=== PATIENT | female | born 1990 | race Caucasian/White ===

== ENCOUNTER 2024-11-05 06:30 | Day surgery (SDC) | payer BC ==
[2024-11-05] MEDS: TYLENOL EXTRA STRENGTH 500 MG PO ONE (06:41)
[2024-11-05] MEDS: NEURONTIN PO ONE (06:41)
[2024-11-05] MEDS: Decadron 4 MG PO ONE (06:41)
[2024-11-05] MEDS: celeBREX 100 MG PO ONE (06:41)
[2024-11-05 06:44] LABS: HCG URINE TEST NEGATIVE (NEGATIVE)
[2024-11-05] MEDS: CEFAZOLIN 2 GM/100 ML NaCl 2 GM/100 ML IVPB IV SCH (06:44)
[2024-11-05] MEDS: Lactated Ringers 1,000 ML IV ONE (06:44)
[2024-11-05 06:51] VITALS: RESP 16
[2024-11-05] MEDS ORDERED: Sodium Chloride 0.9% 1000 ML 1,000 ML ONE (08:51)
[2024-11-05] MEDS ORDERED: TORAdol 30 mg Injection ONE (09:08)
[2024-11-05] MEDS ORDERED: propofoL IV ONE (09:37)
[2024-11-05] MEDS ORDERED: Zofran 4 MG/2 ML VIAL ONE (09:37)
[2024-11-05] MEDS ORDERED: SUBLIMAZE 100 MCG/2 ML ONE (09:42)
[2024-11-05 10:09] VITALS: PULSE 72
[2024-11-05 10:23] VITALS: BP 103/68; TEMP 98.1; O2SAT 100
--- NOTE | 2024-11-06 11:17 | OP ---
SURGERY DATE/TIME: 11/05/2024 [id number] PREOPERATIVE DIAGNOSIS: Menorrhagia. POSTOPERATIVE DIAGNOSIS: Menorrhagia. PROCEDURE: Hysteroscopy, dilation and curettage with failed ablation. SURGEON: Konstantin Frazier DO. DENTAL TECHNICIAN APPRENTICE: Lian Pompa. ANESTHESIA: General. ESTIMATED BLOOD LOSS: Minimal. COMPLICATIONS: None. FINDINGS: The risks, benefits, indications, and alternatives of the procedure were reviewed with the patient prior to the procedure. Patient understood the risks of infection, bleeding, bowel injury, bladder injury, ureteral injury, uterine perforation, pelvic infection, thromboembolic disorder associated with the surgery and desires to have the surgery as a possible means to alleviate her current medical condition. DESCRIPTION OF PROCEDURE AND FINDINGS: At this point, patient was taken to the operating room, given general sedation, placed in the dorsal lithotomy position, prepped and draped in the usual sterile fashion. A weighted speculum was then placed in the patient's vagina, and the anterior lip of the cervix was grasped with a single-tooth tenaculum. Endocervical dilators were advanced through the endocervical canal as a means to dilate the cervix and the 5 mm hysteroscope was taken through the endocervical region where visualization appeared to show scarring throughout the uterine cavity. From this point, the hysteroscope was removed, and the NovaSure was then taken through the endocervical region toward the fundal region, retracted approximately 1 cm where at this point multiple attempts were made to engage the NovaSure. However, the instrument never turned on with its testing after multiple attempts to engage the NovaSure in an attempt to ablate the uterine cavity. After multiple attempts were made, the NovaSure was then removed from the uterine cavity and all other instruments were removed from the patient's vaginal region at this point, after curettage had been performed on her. From this point, patient was then taken out of the dorsal lithotomy position, was taken out of anesthesia, and was then taken to the recovery room in stable condition. All instruments and laps were accounted for x2.
== END 2024-11-05 10:33 | disposition home or self-care (01) ==
LOC: SDC 06:30
PROVIDERS: ATTEND Obstetrics & Gynecology
DX: N92.0 Excessive and frequent menstruation with regular cycle (principal)
CPT/HCPCS: 58558; 81025; J0690; J1885; J2405; J2704; J3010; A9270-GY

== ENCOUNTER 2024-12-24 06:50 | Observation (INO) | payer BC ==
[2024-12-24] MEDS ORDERED: CEFAZOLIN 2 GM/100 ML NaCl 2 GM/100 ML IVPB IV ONE (07:29)
[2024-12-24] MEDS ORDERED: Pepcid 20 MG VIAL IV ONE (07:29)
[2024-12-24 07:30] LABS: HCG URINE TEST NEGATIVE (NEGATIVE)
[2024-12-24] MEDS ORDERED: TYLENOL EXTRA STRENGTH 500 MG ONE (07:30)
[2024-12-24] MEDS ORDERED: Lactated Ringers 1,000 ML IV ONE ×2 (07:30→10:09)
[2024-12-24] MEDS ORDERED: Transderm Scop 1.5MG Patch ONE (07:30)
[2024-12-24] MEDS ORDERED: NEURONTIN ONE (07:30)
[2024-12-24] MEDS ORDERED: Decadron 4 MG ONE (07:30)
[2024-12-24] MEDS ORDERED: celeBREX 100 MG ONE (07:30)
[2024-12-24] MEDS: Decadron 4 MG PO ONE (07:31)
[2024-12-24] MEDS: celeBREX 100 MG PO ONE (07:31)
[2024-12-24] MEDS: NEURONTIN PO ONE (07:31)
[2024-12-24] MEDS: Lactated Ringers 1,000 ML IV SCH ×2 (07:31→15:06)
[2024-12-24] MEDS: CEFAZOLIN 2 GM/100 ML NaCl 2 GM/100 ML IVPB IV SCH ×2 (07:31→16:51)
[2024-12-24] MEDS: Transderm Scop 1.5MG Patch TOP PRN (07:32)
[2024-12-24] MEDS: Pepcid 20 MG VIAL IV ONE (07:32)
[2024-12-24] MEDS: TYLENOL EXTRA STRENGTH 500 MG PO ONE (07:32)
[2024-12-24 08:04] LABS: Hematocrit 32.6 % (34.1-44.9); Hemoglobin 10.2 g/dL (11.2-15.7); Mean Cell Volume 85.1 fL (79.4-94.8); Mean Corpuscular Hemoglobin 26.6 pg (25.6-32.2); Mean Corpuscular Hgb Concent. 31.3 g/dL (32.2-35.5); Mean Platelet Volume 8.7 fL (9.4-12.3); Platelet Count 307 x10^3/uL (182-369); Red Blood Count 3.83 x10^6/uL (3.93-5.22); Red Cell Distribution Width 15.2 % (11.7-14.4); White Blood Count 4.6 x10^3/uL (3.98-10.04)
[2024-12-24 08:17] LABS: ALBUMIN 4.2 g/dL (3.5-5.0); ANION GAP 13.5 MEQ/L (5-15); BILIRUBIN,TOTAL 0.4 mg/dL (0.2-1.3); Calcium 8.8 mg/dL (8.4-10.2); Creatinine 1 0.61 mg/dL (0.52-1.04); EST GLOMERULAR FILTRATION RATE 120.2 ML/MIN; Potassium 3.5 mmol/L (3.5-5.1)
[2024-12-24 08:37] LABS: ABO TYPING A; Antibody Screen NEGATIVE (NEGATIVE); RH TYPING POSITIVE
[2024-12-24] MEDS ORDERED: BRIDION 200MG/2ML IV ONE (09:15)
[2024-12-24] MEDS ORDERED: ROCURONIUM BROMIDE IV ONE ×2 (09:16→10:50)
[2024-12-24] MEDS ORDERED: Astramorph-Pf 5 MG/10 ML ONE (09:16)
[2024-12-24] MEDS ORDERED: Zofran 4 MG/2 ML VIAL ONE (09:18)
[2024-12-24] MEDS ORDERED: dexAMETHasone sodium phosphate ONE (09:18)
[2024-12-24] MEDS ORDERED: Sensorcaine 0.25% 10 ML ONE (09:18)
[2024-12-24] MEDS ORDERED: Xylocaine-Mpf 2% 5 Ml Vial ONE (09:18)
[2024-12-24] MEDS ORDERED: PITRESSIN 20 UNITS ONE (09:19)
[2024-12-24] MEDS ORDERED: propofoL IV ONE (09:19)
[2024-12-24] MEDS ORDERED: Sodium Chloride 0.9% 250 ML 250 ML IV ONE (09:29)
[2024-12-24] MEDS ORDERED: Versed 2 MG/2 ML Injection ONE (09:33)
[2024-12-24] MEDS ORDERED: Sodium Chloride 0.9% 1000 ML 1,000 ML ONE (09:41)
[2024-12-24] MEDS ORDERED: Ephedrine Sulfate 50 MG/ML ONE (12:03)
[2024-12-24 14:29] LABS: Appearance Clear (Clear); Bacteria None Seen /HPF (None Seen); Bilirubin Negative (Negative); Blood Negative (Negative); Epithelial Cells None Seen /HPF (None Seen); Glucose, Urine Negative (Negative); Hyaline Casts NONE SEEN /LPF (0-2); Ketones Trace (Negative); Leukocyte Esterase Negative (Negative); Nitrite Negative (Negative); Ph 7.5 (4.6-8.0); Protein,Urine Dip Negative (Negative); RBC 0-2 /HPF (0-5); Specific Gravity <=1.005 (1.005-1.030); Urobilinogen 0.2 mg/dL (0.2); WBC 0-2 /HPF (0-5)
[2024-12-24] MEDS ORDERED: Zofran 4 MG/2 ML VIAL IV PRN (14:31)
[2024-12-24] MEDS ORDERED: TORAdol 30 mg Injection IV PRN (14:33)
[2024-12-24] MEDS ORDERED: Narcan 0.4 MG/ML IV PRN (14:36)
[2024-12-24] MEDS ORDERED: BENADRYL 50 MG/ML IV PRN (14:36)
[2024-12-24] MEDS ORDERED: DEMEROL 50 MG IV PRN (14:36)
[2024-12-24] MEDS ORDERED: MORPHINE SULFATE 2 MG INJ IV PRN (14:36)
[2024-12-24] MEDS ORDERED: CLARITIN 10 MG PO PRN (14:36)
[2024-12-24] MEDS ORDERED: Nubain 10 MG/ML IV PRN (14:36)
[2024-12-24] MEDS ORDERED: HOLD NARCOTIC ANALGESICS AND SEDATIVES X24 HR MC PRN (14:36)
[2024-12-24] MEDS: Mylicon 80MG PO SCH (15:04)
[2024-12-24] MEDS: Reglan 10 MG/2 ML IV SCH (15:04)
[2024-12-24] MEDS: Docusate Sodium 100 MG PO SCH (15:04)
[2024-12-24] MEDS: Lactated Ringers 500 ML IV SCH (16:21)
[2024-12-24 18:40] LABS: Hematocrit 28.4 % (34.1-44.9); Mean Cell Volume 85.8 fL (79.4-94.8); Mean Corpuscular Hemoglobin 27.2 pg (25.6-32.2); Mean Corpuscular Hgb Concent. 31.7 g/dL (32.2-35.5); Platelet Count 283 x10^3/uL (182-369); Red Blood Count 3.31 x10^6/uL (3.93-5.22); Red Cell Distribution Width 15.2 % (11.7-14.4)
[2024-12-24] MEDS: Sodium Chloride 0.9% 10 ML FLUSH Syringe IJ SCH (23:08)
[2024-12-25 05:15] LABS: Hematocrit 26.9 % (34.1-44.9); Hemoglobin 8.5 g/dL (11.2-15.7); Mean Cell Volume 87.3 fL (79.4-94.8); Mean Corpuscular Hemoglobin 27.6 pg (25.6-32.2); Mean Corpuscular Hgb Concent. 31.6 g/dL (32.2-35.5); Mean Platelet Volume 9.6 fL (9.4-12.3); Platelet Count 336 x10^3/uL (182-369); Red Blood Count 3.08 x10^6/uL (3.93-5.22); Red Cell Distribution Width 15.7 % (11.7-14.4); White Blood Count 7.9 x10^3/uL (3.98-10.04)
[2024-12-25 05:34] LABS: ALBUMIN 3.4 g/dL (3.5-5.0); BILIRUBIN,TOTAL 0.2 mg/dL (0.2-1.3); Calcium 8.3 mg/dL (8.4-10.2); Creatinine 1 0.61 mg/dL (0.52-1.04); EST GLOMERULAR FILTRATION RATE 120.2 ML/MIN; Potassium 3.6 mmol/L (3.5-5.1); Total Protein 5.8 g/dL (6.3-8.2)
[2024-12-25 07:29] VITALS: BP 97/51; PULSE 52; RESP 18; TEMP 97.4; O2SAT 97
--- NOTE | 2024-12-25 07:31 | PCM.NOTE ---
Date and Time: 12/25/24728 Subjective Assessment: pod 1 sp lavh left salpingectomy pt currently resting in bed and doing well able to ambulate and tolerate diet vss afebrile abd; soft incision c/d/intact ext; no clubbing cyanosis or edema hgb 8.5 a/p sp lavh left salpingectomy secondary to symptomatic uterine prolapse pt stable for discharge today should fu in office in 2 wks Objective Data Vital Signs: Vital Signs - 24 hr Temp Pulse Resp BP BP Pulse Ox 12/25/24 07:21 98 12/25/24 04:00 97.8 F 47 L 16 86/48 98 12/25/24 00:00 98.2 F 58 L 16 87/49 98 12/24/24 20:00 98.6 F 58 L 16 86/48 95 12/24/24 16:53 98.0 F 65 16 90/54 99 12/24/24 16:08 97.9 F 54 L 16 85/50 99 12/24/24 15:07 99 12/24/24 14:00 62 18 95/52 97 12/24/24 13:53 97.6 F 70 18 105/56 97 12/24/24 07:49 97.1 F 77 18 114/69 100 12/24/24 07:36 97.1 F 77 18 114/69 100 Pain Assessment - Last Documented Pain Intensity 0 Pain Scale Used 0-10 Pain Scale Intake and Output: Intake & Output 12/22/24 12/23/24 12/24/24 12/25/24 11:59 11:59 11:59 11:59 Intake Total 2284 Output Total 650 Balance 1634 Weight 66.3 kg 67.5 kg Lab Results: Lab Results-Last 24 Hours 12/24/24 12/24/24 12/24/24 Range/Units 07:30 07:56 07:56 WBC 4.6 (3.98-10.04) x10^3/uL RBC 3.83 L (3.93-5.22) x10^6/uL Hgb 10.2 L (11.2-15.7) g/dL Hct 32.6 L (34.1-44.9) % MCV 85.1 (79.4-94.8) fL MCH 26.6 (25.6-32.2) pg MCHC 31.3 L (32.2-35.5) g/dL RDW 15.2 H (11.7-14.4) % Plt Count 307 (182-369) x10^3/uL MPV 8.7 L (9.4-12.3) fL Sodium 140 (135-145) mmol/L Potassium 3.5 (3.5-5.1) mmol/L Chloride 105 (98-107) mmol/L Carbon Dioxide 25 (22-30) mmol/L Anion Gap 13.5 (5-15) MEQ/L BUN 8 (7-17) mg/dL Creatinine 0.61 (0.52-1.04) mg/dL Estimated GFR 120.2 ML/MIN Glucose 106 (74-106) mg/dL Calcium 8.8 (8.4-10.2) mg/dL Total Bilirubin 0.40 (0.2-1.3) mg/dL AST 22 (14-36) U/L ALT 12 (0-35) U/L Alkaline Phosphatase 72 (38-126) U/L Serum Total Protein 7.0 (6.3-8.2) g/dL Albumin 4.2 (3.5-5.0) g/dL Urine Color (Yellow) Urine Appearance (Clear) Urine pH (4.6-8.0) Ur Specific [place] (1.005-1.030) Urine Protein (Negative) Urine Glucose (UA) (Negative) mg/dL Urine Ketones (Negative) Urine Blood (Negative) Urine Nitrite (Negative) Urine Bilirubin (Negative) Urine Urobilinogen (0.2) mg/dL Ur Leukocyte Esterase (Negative) U Hyaline Cast (Auto) (0-2) /LPF Urine Microscopic RBC (0-5) /HPF Urine Microscopic WBC (0-5) /HPF Ur Epithelial Cells (None Seen) /HPF Urine Bacteria (None Seen) /HPF Urine Culture Reflexed (NO) Urine HCG, Qual NEGATIVE (NEGATIVE) ABO Group Rh Factor Antibody Screen (NEGATIVE) 12/24/24 12/24/24 12/24/24 Range/Units 07:56 10:35 18:38 WBC 11.0 H (3.98-10.04) x10^3/uL RBC 3.31 L (3.93-5.22) x10^6/uL Hgb 9.0 L (11.2-15.7) g/dL Hct 28.4 L (34.1-44.9) % MCV 85.8 (79.4-94.8) fL MCH 27.2 (25.6-32.2) pg MCHC 31.7 L (32.2-35.5) g/dL RDW 15.2 H (11.7-14.4) % Plt Count 283 (182-369) x10^3/uL MPV 9.0 L (9.4-12.3) fL Sodium (135-145) mmol/L Potassium (3.5-5.1) mmol/L Chloride (98-107) mmol/L Carbon Dioxide (22-30) mmol/L Anion Gap (5-15) MEQ/L BUN (7-17) mg/dL Creatinine (0.52-1.04) mg/dL Estimated GFR ML/MIN Glucose (74-106) mg/dL Calcium (8.4-10.2) mg/dL Total Bilirubin (0.2-1.3) mg/dL AST (14-36) U/L ALT (0-35) U/L Alkaline Phosphatase (38-126) U/L Serum Total Protein (6.3-8.2) g/dL Albumin (3.5-5.0) g/dL Urine Color Yellow (Yellow) Urine Appearance Clear (Clear) Urine pH 7.5 (4.6-8.0) Ur Specific [place] <=1.005 (1.005-1.030) Urine Protein Negative (Negative) Urine Glucose (UA) Negative (Negative) mg/dL Urine Ketones Trace A (Negative) Urine Blood Negative (Negative) Urine Nitrite Negative (Negative) Urine Bilirubin Negative (Negative) Urine Urobilinogen 0.2 (0.2) mg/dL Ur Leukocyte Esterase Negative (Negative) U Hyaline Cast (Auto) NONE SEEN (0-2) /LPF Urine Microscopic RBC 0-2 (0-5) /HPF Urine Microscopic WBC 0-2 (0-5) /HPF Ur Epithelial Cells None Seen (None Seen) /HPF Urine Bacteria None Seen (None Seen) /HPF Urine Culture Reflexed YES (NO) Urine HCG, Qual (NEGATIVE) ABO Group A Rh Factor POSITIVE Antibody Screen NEGATIVE (NEGATIVE) 12/25/24 12/25/24 Range/Units 05:10 05:10 WBC 7.9 (3.98-10.04) x10^3/uL RBC 3.08 L (3.93-5.22) x10^6/uL Hgb 8.5 L (11.2-15.7) g/dL Hct 26.9 L (34.1-44.9) % MCV 87.3 (79.4-94.8) fL MCH 27.6 (25.6-32.2) pg MCHC 31.6 L (32.2-35.5) g/dL RDW 15.7 H (11.7-14.4) % Plt Count 336 (182-369) x10^3/uL MPV 9.6 (9.4-12.3) fL Sodium 140 (135-145) mmol/L Potassium 3.6 (3.5-5.1) mmol/L Chloride 105 (98-107) mmol/L Carbon Dioxide 25 (22-30) mmol/L Anion Gap 13.0 (5-15) MEQ/L BUN 9 (7-17) mg/dL Creatinine 0.61 (0.52-1.04) mg/dL Estimated GFR 120.2 ML/MIN Glucose 117 H (74-106) mg/dL Calcium 8.3 L (8.4-10.2) mg/dL Total Bilirubin 0.20 (0.2-1.3) mg/dL AST 25 (14-36) U/L ALT 15 (0-35) U/L Alkaline Phosphatase 56 (38-126) U/L Serum Total Protein 5.8 L (6.3-8.2) g/dL Albumin 3.4 L (3.5-5.0) g/dL Urine Color (Yellow) Urine Appearance (Clear) Urine pH (4.6-8.0) Ur Specific [place] (1.005-1.030) Urine Protein (Negative) Urine Glucose (UA) (Negative) mg/dL Urine Ketones (Negative) Urine Blood (Negative) Urine Nitrite (Negative) Urine Bilirubin (Negative) Urine Urobilinogen (0.2) mg/dL Ur Leukocyte Esterase (Negative) U Hyaline Cast (Auto) (0-2) /LPF Urine Microscopic RBC (0-5) /HPF Urine Microscopic WBC (0-5) /HPF Ur Epithelial Cells (None Seen) /HPF Urine Bacteria (None Seen) /HPF Urine Culture Reflexed (NO) Urine HCG, Qual (NEGATIVE) ABO Group Rh Factor Antibody Screen (NEGATIVE) Medications: Medications Generic Name Dose Route Start Last Admin Trade Name Freq PRN Reason Stop Dose Admin Diphenhydramine HCl 12.5 - 25 mg 12/24/24 14:36 Diphenhydramine Hcl 50 Mg/Ml Vial IV 12/25/24 14:35 Q6H PRN PRN ITCHING Docusate Sodium 100 mg 12/24/24 15:00 12/24/24 22:39 Docusate Sodium 100 Mg Capsule PO 01/23/25 14:59 100 mg BID SONYA Administration Enoxaparin Sodium 40 mg 12/25/24 09:00 Enoxaparin Sodium 40 Mg/0.4 Ml Syringe SQ 01/24/25 08:59 DAILY SONYA Lactated Ringer's 1,000 mls @ 125 mls/hr 12/24/24 14:30 12/25/24 00:56 Lactated Ringers IV 01/23/25 14:29 125 mls/hr .Q8H SONYA Administration Ketorolac Tromethamine 30 mg 12/24/24 14:33 Ketorolac Tromethamine 30 Mg/Ml Inj IV 12/29/24 14:32 Q6HPRN PRN BREAKTHROUGH PAIN Loratadine 10 mg 12/24/24 14:36 Loratadine 10 Mg Tablet PO 12/25/24 14:35 QDP PRN ITCHING Meperidine HCl 12.5 mg 12/24/24 14:36 Meperidine Hcl 50 Mg/Ml Carp IV 12/25/24 14:35 PRN PRN SHAKING/TREMORS Metoclopramide HCl 10 mg 12/24/24 15:00 12/24/24 22:39 Metoclopramide Hcl 10 Mg/2 Ml Vial IV 01/23/25 14:59 10 mg Q8HT SONYA Administration Morphine Sulfate 2 mg 12/24/24 14:36 Morphine Sulfate 2 Mg/Ml Inj IV 12/25/24 14:35 .Q30MIN PRN PRN SEVERE PAIN Nalbuphine HCl 5 mg 12/24/24 14:36 Nalbuphine Hcl 10 Mg/Ml Ampul IV 12/25/24 14:35 Q6H PRN PRN ITCHING Naloxone HCl 0.1 mg 12/24/24 14:36 Naloxone Hcl 0.4 Mg/Ml Ml IV 12/25/24 14:35 PRN PRN SOMNOLENCE/RR<10 Non-Formulary Medication 1 each 12/24/24 14:36 Hold Narcotic Analgesics/Sedatives 1 Each Each 12/25/24 14:35 PRN PRN HOLD Ondansetron HCl 4 mg 12/24/24 14:31 Ondansetron Hcl 4 Mg/2 Ml Vial IV 01/23/25 14:30 Q6H PRN PRN NAUSEA/VOMITING Oxycodone/Acetaminophen 1 - 2 tab 12/24/24 14:36 Oxycodone Hcl/Apap 5 Mg/325 Mg Tablet PO 12/25/24 14:35 Q4H PRN PRN MODERATE PAIN Scopolamine HBr 1.5 mg 12/24/24 07:24 12/24/24 07:32 Scopolamine 1.5 Mg Patch TOP 01/23/25 07:23 1.5 mg 1HRPRIOR PRN Administration NAUSEA/VOMITING Simethicone 80 mg 12/24/24 15:00 12/25/24 06:54 Simethicone 80 Mg Tab.Chew PO 01/23/25 14:59 80 mg Q8HT SONYA Administration Sodium Chloride 10 ml 12/24/24 22:00 12/24/24 23:08 Normal Saline 10 Ml Flush IJ 01/23/25 21:59 10 ml QSHIFT SONYA Administration Discontinued Medications Generic Name Dose Route Start Last Admin Trade Name Freq PRN Reason Stop Dose Admin Acetaminophen 1,000 mg 12/24/24 07:23 12/24/24 07:32 Acetaminophen 500 Mg Tablet PO 12/24/24 07:24 1,000 mg 2HRPRIOR ONE Administration Acetaminophen Confirm 12/24/24 07:30 Acetaminophen 500 Mg Tablet Administered 12/24/24 07:31 Dose 1,000 mg .ROUTE .STK-MED ONE Bupivacaine HCl Confirm 12/24/24 09:18 Bupivacaine Hcl 2.5 Mg/Ml 10 Ml Administered 12/24/24 09:19 Dose 20 ml .ROUTE .STK-MED ONE Celecoxib 200 mg 12/24/24 07:23 12/24/24 07:31 Celecoxib 100 Mg Capsule PO 12/24/24 07:24 200 mg 2HRPRIOR ONE Administration Celecoxib Confirm 12/24/24 07:30 Celecoxib 100 Mg Capsule Administered 12/24/24 07:31 Dose 200 mg .ROUTE .STK-MED ONE Dexamethasone 8 mg 12/24/24 07:23 12/24/24 07:31 Dexamethasone 4 Mg Tablet PO 12/24/24 07:24 8 mg 2HRPRIOR ONE Administration Dexamethasone Confirm 12/24/24 07:30 Dexamethasone 4 Mg Tablet Administered 12/24/24 07:31 Dose 8 mg .ROUTE .STK-MED ONE Dexamethasone Sodium Phosphate Confirm 12/24/24 09:18 Dexamethasone Sodium Phosphate 4 Mg/Ml Vial Administered 12/24/24 09:19 Dose 4 mg .ROUTE .STK-MED ONE Ephedrine Sulfate Confirm 12/24/24 12:03 Ephedrine Sulfate 50 Mg/Ml Administered 12/24/24 12:04 Dose 50 mg .ROUTE .STK-MED ONE Famotidine 20 mg 12/24/24 07:24 12/24/24 07:32 Famotidine 20 Mg/1 Vial IV 12/24/24 07:25 20 mg 1HRPRIOR ONE Administration Famotidine Confirm 12/24/24 07:29 Famotidine 20 Mg/1 Vial Administered 12/24/24 07:30 Dose 20 mg IV .STK-MED ONE Gabapentin 600 mg 12/24/24 07:23 12/24/24 07:31 Gabapentin 300 Mg Capsule PO 12/24/24 07:24 600 mg 2HRPRIOR ONE Administration Gabapentin Confirm 12/24/24 07:30 Gabapentin 300 Mg Capsule Administered 12/24/24 07:31 Dose 600 mg .ROUTE .STK-MED ONE Cefazolin Sodium 2 gm in 100 mls @ 200 mls/hr 12/24/24 07:30 12/24/24 07:31 Cefazolin 2 Gm/100 Ml Nacl IV 12/24/24 07:59 200 mls/hr ONCALLTOOR SONYA Administration Lactated Ringer's 1,000 mls @ 50 mls/hr 12/24/24 07:30 12/24/24 07:31 Lactated Ringers IV 01/23/25 07:29 50 mls/hr .Q20H SONYA Administration Cefazolin Sodium Confirm 12/24/24 07:29 Cefazolin 2 Gm/100 Ml Nacl Administered 12/24/24 07:30 Dose 2 gm in 100 mls @ ud IV .STK-MED ONE Lactated Ringer's Confirm 12/24/24 07:30 Lactated Ringers Administered 12/24/24 07:31 Dose 1,000 mls @ ud IV .STK-MED ONE Sodium Chloride Confirm 12/24/24 09:29 Sodium Chloride 0.9% 250 Ml Administered 12/24/24 09:30 Dose 250 mls @ ud IV .STK-MED ONE Sodium Chloride Confirm 12/24/24 09:41 Sodium Chloride 0.9% 1000 Ml Administered 12/24/24 09:42 Dose 1,000 mls @ ud .ROUTE .STK-MED ONE Lactated Ringer's Confirm 12/24/24 10:09 Lactated Ringers Administered 12/24/24 10:10 Dose 1,000 mls @ ud IV .STK-MED ONE Cefazolin Sodium 2 gm in 100 mls @ 200 mls/hr 12/24/24 18:00 12/25/24 02:07 Cefazolin 2 Gm/100 Ml Nacl IV 12/25/24 02:29 200 mls/hr Q8H SONYA Administration Lactated Ringer's 500 mls @ 999 mls/hr 12/24/24 16:30 12/24/24 16:21 Lactated Ringers IV 12/24/24 17:00 Not Given .Q31M SONYA Lidocaine HCl Confirm 12/24/24 09:18 Lidocaine - Mpf 2% 5 Ml Vial Administered 12/24/24 09:19 Dose 5 ml .ROUTE .STK-MED ONE Midazolam HCl Confirm 12/24/24 09:33 Midazolam Hcl 2 Mg/2 Ml Vial Administered 12/24/24 09:34 Dose 2 mg .ROUTE .STK-MED ONE Morphine Sulfate Confirm 12/24/24 09:16 Morphine Sulfate 5 Mg/10 Ml Pf Ampul Administered 12/24/24 09:17 Dose 5 mg .ROUTE .STK-MED ONE Ondansetron HCl Confirm 12/24/24 09:18 Ondansetron Hcl 4 Mg/2 Ml Vial Administered 12/24/24 09:19 Dose 4 mg .ROUTE .STK-MED ONE Propofol Confirm 12/24/24 09:19 Propofol 200 Mg/20 Ml Vial Administered 12/24/24 09:20 Dose 200 mg IV .STK-MED ONE Rocuronium Julian Confirm 12/24/24 09:16 Rocuronium Julian 50 Mg/5 Ml Vial Administered 12/24/24 09:17 Dose 50 mg IV .STK-MED ONE Rocuronium Julian Confirm 12/24/24 10:50 Rocuronium Julian 50 Mg/5 Ml Vial Administered 12/24/24 10:51 Dose 50 mg IV .STK-MED ONE Scopolamine HBr Confirm 12/24/24 07:30 Scopolamine 1.5 Mg Patch Administered 12/24/24 07:31 Dose 1.5 mg .ROUTE .STK-MED ONE Sugammadex Sodium Confirm 12/24/24 09:15 Sugammadex Sodium 200 Mg/2 Ml Vial Administered 12/24/24 09:16 Dose 200 mg IV .STK-MED ONE Vasopressin Confirm 12/24/24 09:19 Vasopressin 20 Unit/Ml Ml Administered 12/24/24 09:20 Dose 20 unit .ROUTE .STK-MED ONE Assessment/Plan (1) Uterine prolapse Current Visit: Yes Status: Acute Code(s): N81.4 - UTEROVAGINAL PROLAPSE, UNSPECIFIED (2) S/P laparoscopic assisted vaginal hysterectomy (LAVH) Current Visit: Yes Status: Acute Code(s): Z90.710 - ACQUIRED ABSENCE OF BOTH CERVIX AND UTERUS
--- NOTE | 2024-12-25 07:37 | PCM.DS ---
Discharge Summary Date of Admission: 12/24/24 06:50 Admitting Physician: JOIE PAYNE DO Consults: Consults on Case 12/24/24 14:36 Notify Anesthesia Provider PRN Primary Care Provider: PHIL EASTMAN Allergies Allergies No Known Drug Allergies Allergy (Verified 12/24/24 13:50) Hospital Summary - Hospital Course Hospital Course: pt admitted on december 24 secondary to undergoing laparoscopic assisted vaginal hysterectomy left salpingectomy with hx of already having had a right salpingectomy and underwent procedure without complication secondary to symptomatic uterine prolapse. during postop period did well able to ambulate and tolerate diet. pt had a hgb of 10 prior to surgery and postop was 8.5 with ebl of 150cc at completion of surgery. pts vss afebrile and at this time stable for discharge. pt advised to fu in office in 2 wks for postop evaluation and was advised to call me for any issues she may have upon discharge. all questions answered to her satisfaction and at this time stable for discharge. percocet 15 tabs sent to pharmacy and was told to take iron supplementation for chronic anemia - Vitals & Intake/Output Vital Signs: Vital Signs Temperature 97.4 F 12/25/24 07:28 Pulse Rate 52 L 12/25/24 07:28 Respiratory Rate 18 12/25/24 07:28 Blood Pressure 97/51 12/25/24 07:28 O2 Sat by Pulse Oximetry 97 12/25/24 07:28 Intake & Output: Intake & Output 12/22/24 12/23/24 12/24/24 12/25/24 11:59 11:59 11:59 11:59 Intake Total 2284 Output Total 650 Balance 1634 Weight 66.3 kg 67.5 kg - Lab Result Diagrams: 12/25/24 05:10 12/25/24 05:10 Lab Results-Last 24 Hrs: Lab Results-Last 24 Hours 12/24/24 12/24/24 12/24/24 Range/Units 07:56 07:56 07:56 WBC 4.6 (3.98-10.04) x10^3/uL RBC 3.83 L (3.93-5.22) x10^6/uL Hgb 10.2 L (11.2-15.7) g/dL Hct 32.6 L (34.1-44.9) % MCV 85.1 (79.4-94.8) fL MCH 26.6 (25.6-32.2) pg MCHC 31.3 L (32.2-35.5) g/dL RDW 15.2 H (11.7-14.4) % Plt Count 307 (182-369) x10^3/uL MPV 8.7 L (9.4-12.3) fL Sodium 140 (135-145) mmol/L Potassium 3.5 (3.5-5.1) mmol/L Chloride 105 (98-107) mmol/L Carbon Dioxide 25 (22-30) mmol/L Anion Gap 13.5 (5-15) MEQ/L BUN 8 (7-17) mg/dL Creatinine 0.61 (0.52-1.04) mg/dL Estimated GFR 120.2 ML/MIN Glucose 106 (74-106) mg/dL Calcium 8.8 (8.4-10.2) mg/dL Total Bilirubin 0.40 (0.2-1.3) mg/dL AST 22 (14-36) U/L ALT 12 (0-35) U/L Alkaline Phosphatase 72 (38-126) U/L Serum Total Protein 7.0 (6.3-8.2) g/dL Albumin 4.2 (3.5-5.0) g/dL Urine Color (Yellow) Urine Appearance (Clear) Urine pH (4.6-8.0) Ur Specific [place] (1.005-1.030) Urine Protein (Negative) Urine Glucose (UA) (Negative) mg/dL Urine Ketones (Negative) Urine Blood (Negative) Urine Nitrite (Negative) Urine Bilirubin (Negative) Urine Urobilinogen (0.2) mg/dL Ur Leukocyte Esterase (Negative) U Hyaline Cast (Auto) (0-2) /LPF Urine Microscopic RBC (0-5) /HPF Urine Microscopic WBC (0-5) /HPF Ur Epithelial Cells (None Seen) /HPF Urine Bacteria (None Seen) /HPF Urine Culture Reflexed (NO) ABO Group A Rh Factor POSITIVE Antibody Screen NEGATIVE (NEGATIVE) 12/24/24 12/24/24 12/25/24 Range/Units 10:35 18:38 05:10 WBC 11.0 H 7.9 (3.98-10.04) x10^3/uL RBC 3.31 L 3.08 L (3.93-5.22) x10^6/uL Hgb 9.0 L 8.5 L (11.2-15.7) g/dL Hct 28.4 L 26.9 L (34.1-44.9) % MCV 85.8 87.3 (79.4-94.8) fL MCH 27.2 27.6 (25.6-32.2) pg MCHC 31.7 L 31.6 L (32.2-35.5) g/dL RDW 15.2 H 15.7 H (11.7-14.4) % Plt Count 283 336 (182-369) x10^3/uL MPV 9.0 L 9.6 (9.4-12.3) fL Sodium (135-145) mmol/L Potassium (3.5-5.1) mmol/L Chloride (98-107) mmol/L Carbon Dioxide (22-30) mmol/L Anion Gap (5-15) MEQ/L BUN (7-17) mg/dL Creatinine (0.52-1.04) mg/dL Estimated GFR ML/MIN Glucose (74-106) mg/dL Calcium (8.4-10.2) mg/dL Total Bilirubin (0.2-1.3) mg/dL AST (14-36) U/L ALT (0-35) U/L Alkaline Phosphatase (38-126) U/L Serum Total Protein (6.3-8.2) g/dL Albumin (3.5-5.0) g/dL Urine Color Yellow (Yellow) Urine Appearance Clear (Clear) Urine pH 7.5 (4.6-8.0) Ur Specific [place] <=1.005 (1.005-1.030) Urine Protein Negative (Negative) Urine Glucose (UA) Negative (Negative) mg/dL Urine Ketones Trace A (Negative) Urine Blood Negative (Negative) Urine Nitrite Negative (Negative) Urine Bilirubin Negative (Negative) Urine Urobilinogen 0.2 (0.2) mg/dL Ur Leukocyte Esterase Negative (Negative) U Hyaline Cast (Auto) NONE SEEN (0-2) /LPF Urine Microscopic RBC 0-2 (0-5) /HPF Urine Microscopic WBC 0-2 (0-5) /HPF Ur Epithelial Cells None Seen (None Seen) /HPF Urine Bacteria None Seen (None Seen) /HPF Urine Culture Reflexed YES (NO) ABO Group Rh Factor Antibody Screen (NEGATIVE) 12/25/24 Range/Units 05:10 WBC (3.98-10.04) x10^3/uL RBC (3.93-5.22) x10^6/uL Hgb (11.2-15.7) g/dL Hct (34.1-44.9) % MCV (79.4-94.8) fL MCH (25.6-32.2) pg MCHC (32.2-35.5) g/dL RDW (11.7-14.4) % Plt Count (182-369) x10^3/uL MPV (9.4-12.3) fL Sodium 140 (135-145) mmol/L Potassium 3.6 (3.5-5.1) mmol/L Chloride 105 (98-107) mmol/L Carbon Dioxide 25 (22-30) mmol/L Anion Gap 13.0 (5-15) MEQ/L BUN 9 (7-17) mg/dL Creatinine 0.61 (0.52-1.04) mg/dL Estimated GFR 120.2 ML/MIN Glucose 117 H (74-106) mg/dL Calcium 8.3 L (8.4-10.2) mg/dL Total Bilirubin 0.20 (0.2-1.3) mg/dL AST 25 (14-36) U/L ALT 15 (0-35) U/L Alkaline Phosphatase 56 (38-126) U/L Serum Total Protein 5.8 L (6.3-8.2) g/dL Albumin 3.4 L (3.5-5.0) g/dL Urine Color (Yellow) Urine Appearance (Clear) Urine pH (4.6-8.0) Ur Specific [place] (1.005-1.030) Urine Protein (Negative) Urine Glucose (UA) (Negative) mg/dL Urine Ketones (Negative) Urine Blood (Negative) Urine Nitrite (Negative) Urine Bilirubin (Negative) Urine Urobilinogen (0.2) mg/dL Ur Leukocyte Esterase (Negative) U Hyaline Cast (Auto) (0-2) /LPF Urine Microscopic RBC (0-5) /HPF Urine Microscopic WBC (0-5) /HPF Ur Epithelial Cells (None Seen) /HPF Urine Bacteria (None Seen) /HPF Urine Culture Reflexed (NO) ABO Group Rh Factor Antibody Screen (NEGATIVE) - Procedures and Test Procedures and Tests throughout Hospitalization: Therapy Orders & Screens 12/24/24 14:04 Smoking Cessation Education ONCE Comment: Diagnosis: SYMPHTOMATIC UTERINE PROLASPE MENNORHGIA Smoking Status: Current every day smoker How long have you smoked: vapes Have you smoked in the past 12 months: Yes Do you dip or chew tobacco: No 12/24/24 14:19 Incentive Spirometry UD Comment: Diagnosis: SYMPHTOMATIC UTERINE PROLASPE MENNORHGIA Final Diagnosis/Problem List - Final Discharge Diagnosis/Problem (1) Uterine prolapse Current Visit: Yes Status: Acute Code(s): N81.4 - UTEROVAGINAL PROLAPSE, UNSPECIFIED (2) S/P laparoscopic assisted vaginal hysterectomy (LAVH) Current Visit: Yes Status: Acute Code(s): Z90.710 - ACQUIRED ABSENCE OF BOTH CERVIX AND UTERUS - Discharge Disposition: Home, Self-Care Condition: Stable Prescriptions: New Oxycodone HCl/Acetaminophen [Percocet 5-325 mg Tablet] 1 each PO Q6H PRN PRN #15 tablet MDD 4 PRN Reason: Moderate To Severe Pain No Action Methimazole 5 mg PO DAILY Follow up with: PHIL EASTMAN NP [Primary Care Provider, [facility]ILY [facility]] JOIE PAYNE DO [ACTIVE STAFF, OBSTETRICS-GYNECOLOGY] - 2 weeks Referral Note: please schedule appt to be seen in 2 wks please call for any issues that may arise upon discharge for example fever, abdominal pain, vaginal bleeding should not drive for 7 days may climb stairs no intercourse for 6 wks
[2024-12-25] MEDS: PERCOCET TABLET 5/325MG PO PRN (08:44)
[2024-12-25] MEDS: ENOXAPARIN SODIUM SQ SCH (09:17)
--- NOTE | 2024-12-26 10:12 | OP ---
SURGERY DATE/TIME: 12/24/2024 [id number] PREOPERATIVE DIAGNOSIS: Symptomatic uterine prolapse. POSTOPERATIVE DIAGNOSIS: Symptomatic uterine prolapse, with history of tubal sterilization with history of right salpingectomy. PROCEDURE: Laparoscopic-assisted vaginal hysterectomy with left salpingectomy, again with history of previous right salpingectomy. SURGEON: Konstantin Frazier DO DAIRY MANAGEMENT SPECIALIST: Lian ANESTHESIA: General. ESTIMATED BLOOD LOSS: 450 mL. COMPLICATIONS: None. DESCRIPTION OF PROCEDURE AND FINDINGS: The risks, benefit, indications, and alternatives of the procedure were reviewed with the patient prior to the procedure. Patient understood the risks of infection, bleeding, bowel injury, bladder injury, ureteral injury, pelvic infection, thromboembolic disorder associated with this surgery and desires to have this surgery as a possible means to alleviate her current medical condition. At this point, the patient was taken to the operating room, given general sedation, placed in a dorsal lithotomy position, prepped and draped in the usual sterile fashion. A weighted speculum was then placed in the patient's vagina, and the anterior lip of the cervix was grasped with a single-tooth tenaculum. Endocervical dilators were advanced through the endocervical canal as a means to dilate the cervix, and a uterine manipulator was then inserted in through the endocervical region as a means to elevate the uterus and manipulate the uterus. Attention was then turned to the patient's abdomen where a 5 mm skin incision was made in the umbilical fold and a 5 mm trocar and sleeve were advanced under direct visualization where pneumoperitoneum was given with 4 L of CO2 gas. At this point, an additional incision was made in the left middle quadrant region where a 5 mm incision was made and a 5 mm trocar and sleeve were advanced under direct visualization. An additional right middle quadrant region incision was made on the right, and a trocar was then inserted under direct visualization. From this point, a survey of the patient's pelvis and abdomen revealed normal anatomy; however, there did appear to be a history of a right salpingectomy and no fallopian tube was located on the right. However, there was a fallopian tube located on the left. At this point, the LigaSure was used, and the uterus was elevated with the uterine manipulator. At this point, the left fallopian tube was excised by placing the LigaSure over the left mesosalpinx. It was clamped, coagulated, and cut towards the cornual region where it was excised and placed in the posterior cul-de-sac. At this point, the LigaSure was placed on the left utero-ovarian ligament where it was clamped, coagulated, and cut, taken down to the round ligament toward the uterine vasculature where it was skeletonized and a bladder flap developed on its side very meticulously. The same procedure was performed on the right side, where the right utero-ovarian ligament was clamped, coagulated, and cut, taken down to the round ligament towards the uterine vasculature where it was skeletonized, where it too was clamped, coagulated, and cut and the bladder flap developed on its side very meticulously. Again, the left uterine vasculature was skeletonized and clamped, coagulated and cut, and hemostasis was obtained. Attention was then turned to the patient's pelvic region where a weighted speculum was placed into the vaginal region and the cervix was then grasped with a single-tooth tenaculum and was injected with diluted vasopressin and approximately 30 mL was injected. Again, the cervix was circumferentially incised with a scalpel and dissected off the pubovesical cervical fascia anteriorly with a sponge stick and the Metzenbaum scissors. The anterior cul-de-sac was then entered sharply. The same procedure was performed posteriorly, and the posterior cul-de-sac was entered sharply without difficulty. At this point, a Lalo clamp was placed over the uterosacral ligaments on both sides. They were then transected and suture ligated with 0 Vicryl suture. Again, hemostasis was assured. The cardinal ligaments were then clamped on both sides, transected, and suture ligated in a similar fashion. From this point, the uterus was then delivered and the pedicles were suture ligated with excellent hemostasis. From this point, the peritoneum and the vaginal cuff were closed with pursestring suture of 0 Vicryl, and the vaginal cuff angles were closed with [id number] stitches of 0 Vicryl on both sides and transfixed to the ipsilateral cardinal and uterosacral ligaments. The remainder of the vaginal cuff was closed with [id number] stitches of 0 Vicryl in an interrupted fashion. From this point, all instruments were removed from the patient's vaginal region, and a second look was made laparoscopically where there was no bleeding that was noted in the pelvic region. From this point, all instruments were removed from the patient's abdominal region, and the incisions were closed with 4-0 Monocryl suture. Sponge, lap, needle, and instrument counts were correct x2.
== END 2024-12-25 10:38 | disposition home or self-care (01) ==
LOC: MED SURG 06:50 → EDSTATUS 15:30
PROVIDERS: ADMIT Obstetrics & Gynecology; ATTEND Obstetrics & Gynecology
DX: N81.4 Uterovaginal prolapse, unspecified (principal); Z98.51 Tubal ligation status; D64.9 Anemia, unspecified
CPT/HCPCS: 36415; 58262; 76937; 80053; 81001; 81025; 85027; 86850; 86900; 86901; 87086; 94762; G0378; 62322; 64488; J0690; J1100; J2250; J2274; J2405; J2704; A9270-GY

== ENCOUNTER 2024-12-27 13:14 | Emergency (ER) | payer BC ==
[2024-12-27 13:39] VITALS: TEMP 97.8
[2024-12-27] MEDS ORDERED: TORAdol 30 mg Injection ONE (14:02)
[2024-12-27] MEDS ORDERED: Sodium Chloride 0.9% 1000 ML 1,000 ML ONE (14:02)
[2024-12-27] MEDS ORDERED: BENADRYL 50 MG/ML ONE (14:02)
[2024-12-27] MEDS ORDERED: Reglan 10 MG/2 ML ONE (14:02)
[2024-12-27 14:09] LABS: Absolute Neutrophil Ct (ANC) 3.86 x10^3/uL (1.56-6.13); BASOPHIL % 0.3 % (0.1-1.2); Basophil (Absolute #) 0.02 x10^3/uL (0.01-0.08); Eosinophil % 1.5 % (0.7-5.8); Eosinophil (Absolute #) 0.09 x10^3/uL (0.04-0.36); Hematocrit 28.5 % (34.1-44.9); Hemoglobin 8.9 g/dL (11.2-15.7); IMMATURE GRAN # 0.02 x10^3u/L (0.001-0.031); IMMATURE GRAN % 0.3 % (0.001-0.429); Lymphocyte (Absolute #) 1.57 x10^3/uL (1.18-3.74); Mean Cell Volume 85.6 fL (79.4-94.8); Mean Corpuscular Hemoglobin 26.7 pg (25.6-32.2); Mean Corpuscular Hgb Concent. 31.2 g/dL (32.2-35.5); Mean Platelet Volume 9.1 fL (9.4-12.3); Monocyte (Absolute #) 0.25 x10^3/uL (0.24-0.86); Monocytes % 4.3 % (4.7-12.5); Neutrophil % 66.6 % (34.0-71.1); Platelet Count 302 x10^3/uL (182-369); Red Blood Count 3.33 x10^6/uL (3.93-5.22); Red Cell Distribution Width 14.8 % (11.7-14.4); White Blood Count 5.8 x10^3/uL (3.98-10.04)
[2024-12-27] MEDS: BENADRYL 50 MG/ML IV ONE (14:19)
[2024-12-27] MEDS: Reglan 10 MG/2 ML IV ONE (14:21)
[2024-12-27] MEDS: TORAdol 30 mg Injection IV ONE (14:23)
[2024-12-27 14:28] LABS: Calcium 8.7 mg/dL (8.4-10.2); Creatinine 1 0.5 mg/dL (0.52-1.04); EST GLOMERULAR FILTRATION RATE 126.1 ML/MIN; Potassium 3.7 mmol/L (3.5-5.1)
[2024-12-27 14:29] LABS: PROTIME 10.9 SECONDS (9.4-12.5)
[2024-12-27] MEDS: Sodium Chloride 0.9% 1000 ML 1,000 ML IV STA (14:41)
[2024-12-27 14:42] VITALS: RESP 18
--- NOTE | 2024-12-27 15:49 | ERPHSYRPT ---
- History of Present Illness Time Seen by Provider: 12/27/24 13:47 Source: patient Exam Limitations: no limitations Patient Subjective Stated Complaint: Pt reports she had an hysterectomy on Monday12/24/[address] Frazier. She has had a headache since yesterday that continues to worsen causing vomiting. Lying helps headache decrease a little bit. Sitting and standing increases headache. Triage Nursing Assessment: Pt alert and oriented x3. respirations easy/nonlabored. skin w/p/d. ambulated to ed cot without difficulty. Vomit bag in hand, no active vomiting at this time. Pt reports previous tenderness to back, no tenderness upon palpation per pts report. No obvious deformities/swelling to back. Physician History: Patient is here with a headache that is "all over her head". Patient had a hysterectomy 3 days prior to arrival here in [facility] with Dr. Frazier. She had a lumbar puncture at that point in time. She states that her headache has been continuing since her lumbar puncture. States that has been worsening over the past 24 hours causing her some vomiting. States that lying flat does help her headache, worse when sitting up and standing. Patient is alert and oriented x 3 as a walk-in. She does have a vomit bag in hand. No active vomiting. She reports no neurological deficits, numbness, weakness. She denies any fever, signs or symptoms of meningitis, encephalitis today. Patient is taking PO well. Same number of urinations and defecations. The patient has no signs of altered mental status, nuchal rigidity, signs of meningitis. The patient is up-to-date on all vaccinations. She was able to ambulate to the room without obvious neurological difficulty or pain. Allergies/Adverse Reactions: No Known Drug Allergies Allergy (Verified 12/27/24 13:35) Home Medications: Methimazole 5 mg PO DAILY 11/17/22 [History] Hx Tetanus, Diphtheria Vaccination/Date Given: Yes (2006) Hx Influenza Vaccination/Date Given: Yes Hx Pneumococcal Vaccination/Date Given: No Travel Risk - International Travel Have you traveled outside of the country in past 3 weeks: No - Emerging Infectious Disease Are you exhibiting symptoms associated with any current EIDs: No - Past Medical History Pertinent Past Medical History: Yes Neurological History: No Pertinent History ENT History: No Pertinent History Cardiac History: No Pertinent History Respiratory History: No Pertinent History Endocrine Medical History: Hyperthyroidism, Other Musculoskeletal History: No Pertinent History GI Medical History: No Pertinent History History: No Pertinent History Psycho-Social History: Anxiety, Depression Female Reproductive Disorders: Abnormal Uterine Bleeding, Menstrual Problems Other Medical History: gestational diabetes, graves disease - Past Surgical History Past Surgical History: Yes Neuro Surgical History: No Pertinent History Cardiac: No Pertinent History Respiratory: No Pertinent History Gastrointestinal: No Pertinent History Genitourinary: No Pertinent History Musculoskeletal: No Pertinent History Female Surgical History: Hysterectomy, Section, Tubal Ligation Other Surgical History: C/S X 2, GESTATIONAL DM WITH ALL 4 PRGNANCIES - Female History Hx Last Menstrual Period: hysterectomy Hx Now: No - Social History Smoking Status: Current every day smoker How long have you smoked: vapes Exposure to second hand smoke: No Drug Use: none - Social Determinants of Health Will the patient participate in the screening: Declined to provide - Nursing Vital Signs Nursing Vital Signs: Initial Vital Signs Temperature 97.8 F 12/27/24 13:29 Pulse Rate 61 12/27/24 13:29 Respiratory Rate 16 12/27/24 13:29 Blood Pressure 119/63 12/27/24 13:29 O2 Sat by Pulse Oximetry 97 12/27/24 13:29 Pain Scale Pain Intensity 3 - Physical Exam General Appearance: no apparent distress, alert Eye Exam: PERRL/EOMI, eyes nml inspection Ears, Nose, Throat Exam: normal ENT inspection, pharynx normal, moist mucous membranes Neck Exam: normal inspection, non-tender, supple, full range of motion Respiratory Exam: normal breath sounds, lungs clear, No respiratory distress Cardiovascular Exam: regular rate/rhythm, normal heart sounds, normal peripheral pulses Gastrointestinal/Abdomen Exam: soft, normal bowel sounds, other (Incisions are clean dry and intact without rebound or signs of infection. No guarding.), No tenderness, No mass Back Exam: normal inspection, normal range of motion, No CVA tenderness, No vertebral tenderness Extremity Exam: normal inspection, normal range of motion, pelvis stable Neurologic Exam: alert, oriented x 3, cooperative, normal mood/affect, nml cerebellar function, nml station & gait, sensation nml, No motor deficits Skin Exam: normal color, warm, dry, No rash Lymphatic Exam: No adenopathy SpO2 Interpretation: normal SpO2: 100 Comments: 12/27/24 15:46 Motor: Patient lifts arms against gravity. Muscle strength and tone are normal Reflexes: Intact major reflexes Sensory: Light touch sensation intact throughout upper and lower extremities Coordination: Rapid alternating movements are intact. Normal [id number] Gait/Stance: Posture is normal, patient is sitting up in bed with normal strength - Course Nursing assessment & vital signs reviewed: Yes Ordered Tests: Active Orders 24 hr Category Date Time Status IV Insertion STAT Care 12/27/24 13:55 Active BMP Stat Lab 12/27/24 14:08 Completed CBC W DIFF Stat Lab 12/27/24 14:08 Completed PROTIME WITH INR Stat Lab 12/27/24 14:08 Completed Medication Summary Discontinued Medications Generic Name Dose Route Start Last Admin Trade Name Freq PRN Reason Stop Dose Admin Diphenhydramine HCl 25 mg 12/27/24 13:55 12/27/24 14:19 Diphenhydramine Hcl 50 Mg/Ml Vial IV 12/27/24 13:56 25 mg STAT ONE Administration Diphenhydramine HCl Confirm 12/27/24 14:02 Diphenhydramine Hcl 50 Mg/Ml Vial Administered 12/27/24 14:03 Dose 50 mg .ROUTE .STK-MED ONE Sodium Chloride 1,000 mls @ 999 mls/hr 12/27/24 13:55 12/27/24 15:41 Sodium Chloride 0.9% 1000 Ml IV 12/27/24 14:55 Infused .Q1H1M STA Infusion Sodium Chloride Confirm 12/27/24 14:02 Sodium Chloride 0.9% 1000 Ml Administered 12/27/24 14:03 Dose 1,000 mls @ ud .ROUTE .STK-MED ONE Ketorolac Tromethamine 15 mg 12/27/24 13:55 12/27/24 14:23 Ketorolac Tromethamine 30 Mg/Ml Inj IV 12/27/24 13:56 15 mg STAT ONE Administration Ketorolac Tromethamine Confirm 12/27/24 14:02 Ketorolac Tromethamine 30 Mg/Ml Inj Administered 12/27/24 14:03 Dose 30 mg .ROUTE .STK-MED ONE Metoclopramide HCl 10 mg 12/27/24 13:55 12/27/24 14:21 Metoclopramide Hcl 10 Mg/2 Ml Vial IV 12/27/24 13:56 10 mg STAT ONE Administration Metoclopramide HCl Confirm 12/27/24 14:02 Metoclopramide Hcl 10 Mg/2 Ml Vial Administered 12/27/24 14:03 Dose 10 mg .ROUTE .[email or web address] ONE Lab/Rad Data: Laboratory Result Diagrams 12/27/24 14:08 12/27/24 14:08 Laboratory Results 12/27/24 12/27/24 12/27/24 Range/Units 14:08 14:08 14:08 WBC 5.8 (3.98-10.04) x10^3/uL RBC 3.33 L (3.93-5.22) x10^6/uL Hgb 8.9 L (11.2-15.7) g/dL Hct 28.5 L (34.1-44.9) % MCV 85.6 (79.4-94.8) fL MCH 26.7 (25.6-32.2) pg MCHC 31.2 L (32.2-35.5) g/dL RDW 14.8 H (11.7-14.4) % Plt Count 302 (182-369) x10^3/uL MPV 9.1 L (9.4-12.3) fL Gran % 66.6 (34.0-71.1) % Immature Gran % (Auto) 0.3 (0.001-0.429) % Nucleat RBC Rel Count 0.0 (0.00-0.2) % Eos # (Auto) 0.09 (0.04-0.36) x10^3/uL Immature Gran # (Auto) 0.02 (0.001-0.031) x10^3u/L Absolute Lymphs (auto) 1.57 (1.18-3.74) x10^3/uL Absolute Monos (auto) 0.25 (0.24-0.86) x10^3/uL Absolute Nucleated RBC 0.00 (0.00-0.012) x10^3u/L Lymphocytes % 27.0 (19.3-51.7) % Monocytes % 4.3 L (4.7-12.5) % Eosinophils % 1.5 (0.7-5.8) % Basophils % 0.3 (0.1-1.2) % Absolute Granulocytes 3.86 (1.56-6.13) x10^3/uL Basophils # 0.02 (0.01-0.08) x10^3/uL PT 10.9 (9.4-12.5) SECONDS INR 1.00 (0.8-3.0) Sodium 137 (135-145) mmol/L Potassium 3.7 (3.5-5.1) mmol/L Chloride 105 (98-107) mmol/L Carbon Dioxide 28 (22-30) mmol/L Anion Gap 9.0 (5-15) MEQ/L BUN 9 (7-17) mg/dL Creatinine 0.50 L (0.52-1.04) mg/dL Estimated GFR 126.1 ML/MIN Glucose 91 (74-106) mg/dL Calcium 8.7 (8.4-10.2) mg/dL - Progress Progress: improved Progress Note: 12/27/24 15:46 Differential diagnosis includes post LP headache, electrolyte abnormality, migraine, tension headache, other infection Low suspicion for meningitis, encephalitis based on history, labs, physical exam. At 2 PM, I did discuss with CHEF BROILER OR [facility], Dr. Frazier. He stated that the hysterectomy case had gone well. However he had a much stronger suspicion for post LP headache. He recommended reaching out to anesthesiology to see if patient was a candidate for a blood patch. Given this, I did discuss over the phone with, Negro BLAS. He did agree to evaluate the patient for possible blood patch. See his note for full details. In short, he did explain the risks and benefits of a blood patch with the patient, they did decide to proceed with this in the emergency department. 1548: Negro has completed the procedure, see his note for full details. He did state that patient is already feeling better. Recommended laying flat in the ER for the next 2 hours. Stated that he did explain the risks and benefits of infection with the patient. I will go over these again on things to look out for and reasons to return to the ER. Plan for continued close ER monitoring at this time. I will repeat a neurological exam, not plan on getting any head imaging if patient is feeling better. However, should patient not improve we will consider alternative avenues to diagnosis. 12/27/24 16:59 Patient is feeling much improved at this point in time. She has laid flat for over an hour and a half at this point in time. Of note, there is a severe thunderstorm warming. Patient states that she would like to be discharged home at this point in time prior to the severe weather arriving. She states that her will drive her home and she will lay flat at home. I do feel this is reasonable as she is feeling improved, labs and vital signs have been stable. She is not have any fevers here. Likely is a post lumbar puncture headache. Will discharge patient home at this point in time. Discussed with : Kevin Counseled pt/family regarding: lab results, diagnosis, need for follow-up - Departure Departure Disposition: Home Clinical Impression: Post lumbar puncture headache Condition: Stable Critical Care Time: No Referrals: PHIL EASTMAN NP [Primary Care Provider, [facility]] - Follow up/PCP as directed Instructions: Headache, Adult (DC) Additional Instructions: Return to the ER emergently for any fever, change in headache, worsening headache, neurological symptoms, falls, dizziness. Keep your follow-up appointment with CHEF BROILER OR FRY next week. Return for any new or other changing symptoms.
[2024-12-27 17:01] VITALS: O2SAT 100
[2024-12-27 17:12] VITALS: BP 114/73; PULSE 68
== END 2024-12-27 17:14 | disposition home or self-care (01) ==
LOC: ED 13:14
DX: G97.1 Other reaction to spinal and lumbar puncture (principal); R51.9 Headache, unspecified; Z79.899 Other long term (current) drug therapy; Z72.0 Tobacco use
CPT/HCPCS: 36415; 80048; 85025; 85610; 96361; 96374; 96375; 99284; J1200; J1885